=== PATIENT | male | born 1945 | race Caucasian/White ===

== ENCOUNTER 2018-12-19 15:56 | Emergency (ER) | payer MEDICARE ==
[~2018-12-19] VITALS: Ht 170.2 cm; Wt 86.0 kg
[2018-12-19 16:22] VITALS: Ht 170.2 cm; Wt 86.0 kg
[2018-12-19] MEDS ORDERED: LIDOCAINE 1%/EPI (1:100,000) (MDV) 20 ML INJ ONE (16:30)
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
[2018-12-19] MEDS ORDERED: LIDOCAINE 1%/EPI 30 ML INJ INJ SCH (17:00)
[2018-12-19] MEDS ORDERED: BENA5TAB33 PO (17:25)
[2018-12-19] MEDS ORDERED: METF750T2 PO (17:25)
[2018-12-19] MEDS ORDERED: ACETAMINOPHEN 325 MG TAB PO ONE (19:00)
[2018-12-19 19:19] VITALS: BP 155/88; PULSE 81; RESP 16
== END 2018-12-19 19:22 | disposition home or self-care (01) ==
LOC: E/R 15:56
DX: S01.01XA Laceration without foreign body of scalp, initial encounter (principal); E11.9 Type 2 diabetes mellitus without complications; I10 Essential (primary) hypertension; V77.6XXA Passenger on bus injured in collision with fixed or stationary object in traffic accident, initial encounter; Z79.84 Long term (current) use of oral hypoglycemic drugs
CPT/HCPCS: 70450; 82962

== ENCOUNTER 2018-12-23 11:07 | Emergency (ER) | payer MEDICARE, OTHER ==
[~2018-12-23] VITALS: Ht 160 cm; Wt 90.1 kg
[~2018-12-23 11:07] MED LIST: BENA5TAB33 PO; METF750T2 PO
[2018-12-23 11:11] VITALS: BP 152/93; PULSE 91; RESP 16; Ht 160 cm; Wt 90.1 kg
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
== END 2018-12-23 12:23 | disposition home or self-care (01) ==
LOC: FTE 11:07
DX: S01.01XD Laceration without foreign body of scalp, subsequent encounter (principal); I10 Essential (primary) hypertension; E11.9 Type 2 diabetes mellitus without complications; V89.2XXD Person injured in unspecified motor-vehicle accident, traffic, subsequent encounter; Z79.84 Long term (current) use of oral hypoglycemic drugs
CPT/HCPCS: 99281